=== PATIENT | male | born 2000 | race African-American/Black ===

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

== ENCOUNTER 2021-02-14 18:27 | Emergency (ER) | payer BC, OTHER, SELFPAY | END 2021-02-14 19:40 | disposition home or self-care (01) | LOC: ERS 18:27 | DX: S62.521A Displaced fracture of distal phalanx of right thumb, initial encounter for closed fracture (principal); W21.05XA Struck by basketball, initial encounter; Y93.67 Activity, basketball | CPT/HCPCS: 26750 ==